=== PATIENT | female | born 1965 | race Caucasian/White ===

== ENCOUNTER 2020-08-11 15:51 | Outpatient (CLI) | payer BC, OTHER | END 2020-08-11 15:52 | disposition home or self-care (01) | LOC: CSHMRI 15:51 | PROVIDERS: ATTEND Orthopaedic Surgery | DX: Z98.890 Other specified postprocedural states (principal); S49.91XD Unspecified injury of right shoulder and upper arm, subsequent encounter; S43.431D Superior glenoid labrum lesion of right shoulder, subsequent encounter; M67.813 Other specified disorders of tendon, right shoulder; M71.811 Other specified bursopathies, right shoulder ==

== ENCOUNTER 2024-12-24 10:35 | Outpatient (CLI) | payer BC | END 2024-12-24 10:36 | disposition home or self-care (01) | LOC: CSHRAD 10:35 | PROVIDERS: ATTEND Family Medicine | DX: Z01.818 Encounter for other preprocedural examination (principal) | CPT/HCPCS: 93005; 93010 ==

== ENCOUNTER 2025-03-06 11:48 | Outpatient (CLI) | payer BC | END 2025-03-06 11:49 | disposition home or self-care (01) | LOC: CSHLAB 11:48 | PROVIDERS: ATTEND Obstetrics & Gynecology | DX: Z01.812 Encounter for preprocedural laboratory examination (principal); N81.2 Incomplete uterovaginal prolapse | CPT/HCPCS: 85027; 86850; 86900; 86901 ==

== ENCOUNTER 2025-03-10 05:53 | Day surgery (SDC) | payer BC ==
[2025-03-06 12:07] VITALS: BMI 34.0
[2025-03-06 12:25] LABS: Hematocrit 38.0 % (34.9-44.5); Hemoglobin 12.0 g/dL (12.0-15.5); Mean Corpuscular Hemoglobin 29.1 pg (27.0-33.0); Mean Corpuscular Volume 92.2 fL (81.6-98.3); Platelet Count 269 10x3/uL (150-450); Red Blood Cell (RBC) Count 4.12 10x6/uL (3.90-5.03); White Blood Cell (WBC) Count 7.93 10x3/uL (3.5-10.5)
[2025-03-10] MEDS ORDERED: Bupivacaine HCl 0.5%/Epinephrine 1:200,000/PF 30 ml Vial ONE (06:54)
[2025-03-10] MEDS ORDERED: Gabapentin 300 MG CAP ONE (06:55)
[2025-03-10] MEDS ORDERED: Famotidine/PF 20 mg/2ml Vial ONE (06:56)
[2025-03-10] MEDS ORDERED: metroNIDAZOLE 500 MG (100 mL) BAG ONE (07:04)
[2025-03-10] MEDS ORDERED: Rocuronium Bromide 10 MG/ML (10ML VIAL) ONE (07:07)
[2025-03-10] MEDS ORDERED: SUGAMMADEX SODIUM 200 MG/2 ML VIAL ONE (07:07)
[2025-03-10] MEDS ORDERED: Glycopyrrolate 0.2 MG/ML 5 ML SYRINGE ONE (07:08)
[2025-03-10] MEDS ORDERED: PROPOFOL 20 ML ONE (07:08)
[2025-03-10] MEDS ORDERED: CEFAZOLIN 2 GM VIAL ONE (07:20)
[2025-03-10] MEDS ORDERED: PHENYLEPHRINE-NS 100 MCG/ML 10 ML SYRINGE ONE (08:08)
[2025-03-10] MEDS ORDERED: HYDROcodone/Acetaminophen 5/325 mg Tablet ONE (10:33)
== END 2025-03-10 11:55 | disposition home or self-care (01) ==
LOC: CSHSDC 05:53
PROVIDERS: ATTEND Obstetrics & Gynecology
DX: D25.1 Intramural leiomyoma of uterus (principal); N80.03 Adenomyosis of the uterus; N81.4 Uterovaginal prolapse, unspecified; Z86.73 Personal history of transient ischemic attack (TIA), and cerebral infarction without residual deficits; Z86.718 Personal history of other venous thrombosis and embolism; Z90.49 Acquired absence of other specified parts of digestive tract; Z91.038 Other insect allergy status
CPT/HCPCS: 36415; 85027; 86850; 86900; 86901; 88307; C9250-JZ; J1100; J1308; J2250; J2704; J3010; S2900